=== PATIENT | female | born 1955 | race Asian ===

== ENCOUNTER → 2016-06-24 | Outpatient (CLI) | payer OTHER | END | disposition home or self-care (01) | LOC: CFH 11:08 | PROVIDERS: ATTEND Nurse Practitioner Family | DX: I07.1 Rheumatic tricuspid insufficiency (principal); R07.9 Chest pain, unspecified; I51.7 Cardiomegaly; I25.3 Aneurysm of heart; I34.0 Nonrheumatic mitral (valve) insufficiency | CPT/HCPCS: 93306 ==